=== PATIENT | female | born 1940 | race Caucasian/White ===

== ENCOUNTER 2017-02-25 10:04 | Observation (INO) | payer MEDICARE, BC ==
--- NOTE | 2017-02-25 10:56 | ED ---
General Adult HPI - General Chief complaint: Chest Pain Stated complaint: left should pain Time Seen by Provider: 02/25/17 10:05 Source: patient, RN notes reviewed Mode of arrival: wheelchair Limitations: no limitations - History of Present Illness Initial comments: This is a 77-year-old female presents emergency Department complaining of two- week history of left shoulder pain. Patient states it hurts worse when she moves it she states the pain radiates up into her neck and occasionally radiates into her chest per patient states it's excruciating at times and it seems to come and go and it often occurs when he she is not even moving it. Patient states moving it does cause significant increase in the pain level. Patient states the only thing that seems to helped her pain is nitroglycerin. Patient denies any recent fever chills or cough. Patient denies any headache patient denies any numbness weakness. Patient denies any recent injury trauma or heavy lifting. Patient denies any back pain. - Related Data Home Medications Medication Instructions Recorded Confirmed Isosorbide Mononitrate [Imdur] 60 mg PO BID@0900,209912/20/13 02/25/17 Clopidogrel [Plavix] 75 mg PO DAILY@1700 10/24/14 02/25/17 Lisinopril [Prinivil] 20 mg PO DAILY@0910/24/14 02/25/17 Metoprolol Succinate [Toprol XL] 50 mg PO BID 10/24/14 02/25/17 Diltiazem HCl [Diltiazem 24Hr ER] 180 mg PO BID@0900,209901/02/15 02/25/17 Methocarbamol [Robaxin] 500 mg PO BID@0900,209901/02/15 02/25/17 Montelukast [Singulair] 10 mg PO DAILY@00 01/02/15 02/25/17 Melatonin 3 mg PO HS@209902/27/15 02/25/17 Methyl Salicylate/Menthol 1 patch TP DAILY PRN 02/27/15 02/25/17 [Salonpas Patch] Nitroglycerin Sl Tabs [Nitrostat] 0.4 mg SUBLINGUAL Q5M PRN 02/27/15 02/25/17 Acetaminophen-Codeine 300-30mg 1 tab PO Q6H PRN 02/25/17 02/25/17 [Tylenol #3] Ergocalciferol [Vitamin D2] 50,000 unit PO Q7D 02/25/17 02/25/17 Furosemide [Lasix] 40 mg PO DAILY 02/25/17 02/25/17 Gabapentin [Neurontin] 400 mg PO BID 02/25/17 02/25/17 Simvastatin [Zocor] 20 mg PO DAILY 02/25/17 02/25/17 Previous Rx's Medication Instructions Recorded Insuln Asp Prt/Insulin Aspart 17 unit SQ AC-SUPPER #1 vial 03/03/15 [NovoLOG MIX 70-30 VIAL] Insuln Asp Prt/Insulin Aspart 34 unit SQ AC-BRKFST #1 vial 03/03/15 [NovoLOG MIX 70-30 VIAL] Sennosides [Senokot] 8.6 mg PO BID@0900,2100 tab 03/03/15 Allergies Allergy/AdvReac Type Severity Reaction Status Date / Time gabapentin Allergy Severe Unknown Verified 02/25/17 10:50 aspirin Allergy Nausea & Verified 02/25/17 10:50 Vomiting, hives Review of Systems ROS Statement: Those systems with pertinent positive or pertinent negative responses have been documented in the HPI. ROS Other: All systems not noted in ROS Statement are negative. Past Medical History Past Medical History: Coronary Artery Disease (CAD), Diabetes Mellitus, Hyperlipidemia, Hypertension Additional Past Medical History / Comment(s): arrythmia, hiatal hernia, hx ulcer years ago, frequent UTI's, chronic lower back pain, torn rotator cuff (rt) , skin CA removed on nose History of Any Multi-Drug Resistant Organisms: None Reported Past Surgical History: Appendectomy, Heart Catheterization With Stent, Hernia Repair, Hysterectomy, Pacemaker Additional Past Surgical History / Comment(s): biopsy of skin lesion on nose Past Anesthesia/Blood Transfusion Reactions: No Reported Reaction Date of Last Stent Placement:: 2006 Type of Cardiac Device: Permanent Pacemaker Device Placement Date:: 01/2012 Past Psychological History: No Psychological Hx Reported Smoking Status: Former smoker Past Alcohol Use History: None Reported Past Drug Use History: None Reported - Past Family History Mother Family Medical History: Cancer, Hypertension Father Additional Family Medical History / Comment(s): pt stated had heart issues but doesn't recall what General Exam - General Exam Comments Initial Comments: GENERAL: Patient is well-developed and well-nourished. Patient is nontoxic and well- hydrated and is in moderate distress. ENT: Neck is soft and supple. No significant lymphadenopathy is noted. Oropharynx is clear. Moist mucous membranes. Neck has full range of motion without eliciting any pain. EYES: The sclera were anicteric and conjunctiva were pink and moist. Extraocular movements were intact and pupils were equal round and reactive to light. Eyelids were unremarkable. PULMONARY: Unlabored respirations. Good breath sounds bilaterally. No audible rales rhonchi or wheezing was noted. CARDIOVASCULAR: There is a regular rate and rhythm without any murmurs gallops or rubs. ABDOMEN: Soft and nontender with normal bowel sounds. No palpable organomegaly was noted. There is no palpable pulsatile mass. SKIN: Skin is clear with no lesions or rashes and otherwise unremarkable. NEUROLOGIC: Patient is alert and oriented x3. Cranial nerves II through XII are grossly intact. Motor and sensory are also intact. Normal speech, volume and content. Symmetrical smile. MUSCULOSKELETAL: Open of the left shoulder does seem to cause patient quite a bit of pain to palpation of the shoulder does not. LYMPHATICS: No significant lymphadenopathy is noted PSYCHIATRIC: Normal psychiatric evaluation. Normal interpersonal interactions appears functionally intact in deals appropriately with others. No signs of depression. No signs of anxiety. Limitations: no limitations Course Vital Signs 02/25/17 02/25/17 02/25/17 10:06 10:59 11:05 Temperature 97.0 F L Pulse Rate 65 70 66 Respiratory 18 20 20 Rate Blood Pressure 162/74 132/65 114/63 O2 Sat by Pulse 97 99 98 Oximetry 02/25/17 11:10 Temperature Pulse Rate 65 Respiratory 18 Rate Blood Pressure 118/68 O2 Sat by Pulse 99 Oximetry Medical Decision Making - Medical Decision Making EKG shows a paced rhythm at 65 bpm W[place] interval is 286 QRS is 144 Q-T intervals 426 QTC is 443. Patient's EKG shows no ST segment elevation or depression or T wave abnormalities are noted. Chest x-ray shows no acute abnormality. Shoulder x-ray shows no acute abnormality. - Lab Data Result diagrams: 02/25/17 10:25 02/25/17 10:25 Lab Results 02/25/17 02/25/17 02/25/17 Range/Units 10:25 10:25 10:25 WBC 7.3 (3.8-10.6) k/uL RBC 4.32 (3.80-5.40) m/uL Hgb 12.8 (11.4-16.0) gm/dL Hct 38.9 (34.0-46.0) % MCV 90.1 (80.0-100.0) fL MCH 29.6 (25.0-35.0) pg MCHC 32.9 (31.0-37.0) g/dL RDW 14.0 (11.5-15.5) % Plt Count 248 (150-450) k/uL Neutrophils % 71 % Lymphocytes % 20 % Monocytes % 6 % Eosinophils % 1 % Basophils % 0 % Neutrophils # 5.2 (1.3-7.7) k/uL Lymphocytes # 1.4 (1.0-4.8) k/uL Monocytes # 0.4 (0-1.0) k/uL Eosinophils # 0.1 (0-0.7) k/uL Basophils # 0.0 (0-0.2) k/uL PT (9.0-12.0) sec INR (<1.2) APTT (22.0-30.0) sec Sodium 137 (137-145) mmol/L Potassium 4.9 (3.5-5.1) mmol/L Chloride 105 (98-107) mmol/L Carbon Dioxide 21 L (22-30) mmol/L Anion Gap 11 mmol/L BUN 29 H (7-17) mg/dL Creatinine 0.70 (0.52-1.04) mg/dL Est GFR (MDRD) Af Amer >60 (>60 ml/min/1.73 sqM) Est GFR (MDRD) Non-Af >60 (>60 ml/min/1.73 sqM) Glucose 211 H (74-99) mg/dL Calcium 9.3 (8.4-10.2) mg/dL Magnesium 1.7 (1.6-2.3) mg/dL Total Bilirubin 0.3 (0.2-1.3) mg/dL AST 18 (14-36) U/L ALT 28 (9-52) U/L Alkaline Phosphatase 89 (38-126) U/L Total Creatine Kinase 24 L (30-135) U/L CK-MB (CK-2) 0.7 (0.0-2.4) ng/mL CK-MB (CK-2) Rel Index 2.9 Troponin I <0.012 (0.000-0.034) ng/mL Total Protein 6.6 (6.3-8.2) g/dL Albumin 3.8 (3.5-5.0) g/dL 02/25/17 Range/Units 10:25 WBC (3.8-10.6) k/uL RBC (3.80-5.40) m/uL Hgb (11.4-16.0) gm/dL Hct (34.0-46.0) % MCV (80.0-100.0) fL MCH (25.0-35.0) pg MCHC (31.0-37.0) g/dL RDW (11.5-15.5) % Plt Count (150-450) k/uL Neutrophils % % Lymphocytes % % Monocytes % % Eosinophils % % Basophils % % Neutrophils # (1.3-7.7) k/uL Lymphocytes # (1.0-4.8) k/uL Monocytes # (0-1.0) k/uL Eosinophils # (0-0.7) k/uL Basophils # (0-0.2) k/uL PT 9.8 (9.0-12.0) sec INR 1.0 (<1.2) APTT 23.1 (22.0-30.0) sec Sodium (137-145) mmol/L Potassium (3.5-5.1) mmol/L Chloride (98-107) mmol/L Carbon Dioxide (22-30) mmol/L Anion Gap mmol/L BUN (7-17) mg/dL Creatinine (0.52-1.04) mg/dL Est GFR (MDRD) Af Amer (>60 ml/min/1.73 sqM) Est GFR (MDRD) Non-Af (>60 ml/min/1.73 sqM) Glucose (74-99) mg/dL Calcium (8.4-10.2) mg/dL Magnesium (1.6-2.3) mg/dL Total Bilirubin (0.2-1.3) mg/dL AST (14-36) U/L ALT (9-52) U/L Alkaline Phosphatase (38-126) U/L Total Creatine Kinase (30-135) U/L CK-MB (CK-2) (0.0-2.4) ng/mL CK-MB (CK-2) Rel Index Troponin I (0.000-0.034) ng/mL Total Protein (6.3-8.2) g/dL Albumin (3.5-5.0) g/dL Disposition Clinical Impression: Chest pain, Shoulder pain Disposition: ADMITTED IP TO THIS HOSP Referrals: Javier Enriquez MD [Primary Care Provider] - 1-2 days Time of Disposition: 12:17
[2017-02-25] MEDS: NITROGLYCERIN SL TABS 0.4 MG TAB SUBLINGUAL STA ×3 (10:59→11:09)
[2017-02-25] MEDS: ASPIRIN 81 MG PO STA ×2 (11:06→11:07)
[2017-02-25] MEDS ORDERED: ONDANSETRON 4 MG/2 ML VIAL IVP STA (11:11)
[2017-02-25] MEDS ORDERED: HYDROmorphone 1 MG/ML 1 ML SYRINGE IVP STA (11:11)
[2017-02-25 11:13] LABS: Basophils % (A) 0 %; CH 30.9; CHCM 34.5; Eosinophils # (A) 0.1 k/uL (0-0.7); Eosinophils % (A) 1 %; HCT 38.9 % (34.0-46.0); HDW 2.69; HGB 12.8 gm/dL (11.4-16.0); Luc # (Auto) 0.15; Luc % (Auto) 2; Lymphocytes # (A) 1.4 k/uL (1.0-4.8); Lymphocytes % (A) 20 %; MCH 29.6 pg (25.0-35.0); MCHC 32.9 g/dL (31.0-37.0); MCV 90.1 fL (80.0-100.0); Mean Platelet Volume 7.3; Monocytes # (A) 0.4 k/uL (0-1.0); Monocytes % (A) 6 %; Neutrophils # (A) 5.2 k/uL (1.3-7.7); Neutrophils % (A) 71 %; RBC 4.32 m/uL (3.80-5.40); WBC 7.3 k/uL (3.8-10.6); WBC (Perox) 8.03
[2017-02-25 11:16] LABS: ALT 28 U/L (9-52); AST 18 U/L (14-36); Alkaline Phosphatase 89 U/L (38-126); Anion Gap 11 mmol/L; Blood Urea Nitrogen 29 mg/dL (7-17); Calcium 9.3 mg/dL (8.4-10.2); Carbon Dioxide 21 mmol/L (22-30); Chloride 105 mmol/L (98-107); Glucose 211 mg/dL (74-99); Magnesium 1.7 mg/dL (1.6-2.3); Non-African American GFR(MDRD) >60 (>60 ml/min/1.73 sqM); Potassium 4.9 mmol/L (3.5-5.1); Sodium 137 mmol/L (137-145); Total Bilirubin 0.3 mg/dL (0.2-1.3); Total Protein 6.6 g/dL (6.3-8.2)
[2017-02-25 11:17] LABS: Partial Thromboplastin Time 23.1 sec (22.0-30.0)
[2017-02-25 11:20] LABS: Prothrombin Time 9.8 sec (9.0-12.0)
--- NOTE | 2017-02-25 11:31 | XR ---
EXAMINATION TYPE: XR chest 2V DATE OF EXAM: 02/25/2017 COMPARISON: NONE INDICATION: Left shoulder left side pain TECHNIQUE: Frontal and lateral views of the chest are obtained. FINDINGS: The heart size is normal. The pulmonary vasculature is normal. The lungs are clear. Electronic device overlies left chest. IMPRESSION: 1. No acute pulmonary process.
[2017-02-25 11:34] LABS: Creatine Kinase 24 U/L (30-135)
--- NOTE | 2017-02-25 11:37 | XR ---
EXAMINATION TYPE: XR shoulder complete LT DATE OF EXAM: 02/25/2017 COMPARISON: 10/24/2014 HISTORY: Pain TECHNIQUE: Shoulder examined in 3 FINDINGS: The humeral head articulates with the glenoid. There is some hypertrophy at the acromioclavicular junction with downward spurring which can contribu te to impingement No acute fractures or dislocations are evident. Pacemaker overlies left chest. A follow up study can be performed 7-10 days from acute trauma for continued pain. IMPRESSION: 1. No acute osseous abnormality.
[2017-02-25 11:46] LABS: Creatine Kinase MB 0.7 ng/mL (0.0-2.4); Troponin I <0.012 ng/mL (0.000-0.034)
[2017-02-25] MEDS ORDERED: NITROGLYCERIN SL TABS 0.4 MG TAB SUBLINGUAL PRN (12:17)
[2017-02-25 17:01] LABS: Creatine Kinase 24 U/L (30-135)
[2017-02-25 17:11] LABS: Creatine Kinase MB 0.5 ng/mL (0.0-2.4); Troponin I <0.012 ng/mL (0.000-0.034)
[2017-02-25 17:20] LABS: Glucose,Whole Blood 233 mg/dL (75-99)
[2017-02-25] MEDS ORDERED: NITROGLYCERIN OINT 1 INCH/GM PACKET TOPICAL SCH (18:00)
[2017-02-25 20:34] LABS: Glucose,Whole Blood 229 mg/dL (75-99)
[2017-02-25] MEDS ORDERED: CLOPIDOGREL 75 MG TAB PO SCH (21:00)
[2017-02-25] MEDS ORDERED: MELATONIN 3 MG TABLET PO SCH (21:00)
[2017-02-25] MEDS ORDERED: INSULN ASP PRT/INSULIN ASPART 100 UNIT/ML 10 ML VIAL SQ SCH (21:00)
[2017-02-25] MEDS: HYDROcodone/APAP 10-325MG 1 EACH TAB PO PRN (23:01)
[2017-02-25] MEDS: GABAPENTIN 400 MG CAP PO SCH (23:02)
[2017-02-25] MEDS: METOPROLOL SUCCINATE (ER) 50 MG TAB.ER.24H PO SCH (23:02)
[2017-02-25] MEDS: SENNOSIDES 8.6 MG TAB PO SCH (23:02)
[2017-02-25] MEDS: DILTIAZEM CD 180 MG CAP.ER.24H PO SCH (23:02)
[2017-02-25] MEDS: ISOSORBIDE MONONITRATE ER 60 MG TAB.ER.24H PO SCH (23:02)
[2017-02-25] MEDS: HEPARIN SODIUM,PORCINE 5,000 UNIT/ML 1 ML VIAL SQ SCH (23:03)
[2017-02-25] MEDS: METHOCARBAMOL 500 MG TAB PO SCH (23:03)
[2017-02-25 23:33] LABS: Creatine Kinase 30 U/L (30-135)
[2017-02-25 23:46] LABS: Creatine Kinase MB 0.4 ng/mL (0.0-2.4); Troponin I <0.012 ng/mL (0.000-0.034)
[2017-02-26 03:34] LABS: Cholesterol 191 mg/dL (<200); HDL Cholesterol 35 mg/dL (40-60)
[2017-02-26] MEDS: HYDROcodone/APAP 10-325MG 1 EACH TAB PO PRN ×2 (04:31→10:54)
[2017-02-26 04:35] VITALS: RESP 18
[2017-02-26 07:01] LABS: Glucose,Whole Blood 114 mg/dL (75-99)
[2017-02-26] MEDS ORDERED: INSULN ASP PRT/INSULIN ASPART 100 UNIT/ML 10 ML VIAL SQ SCH (07:30)
[2017-02-26] MEDS: INSULIN LISPRO (humaLOG) 300 UNIT/3 ML VIAL SQ SCH ×2 (08:22→12:35)
[2017-02-26] MEDS: ASPIRIN 325 MG TAB PO SCH ×2 (08:29→08:30)
[2017-02-26] MEDS: HEPARIN SODIUM,PORCINE 5,000 UNIT/ML 1 ML VIAL SQ SCH (08:29)
[2017-02-26] MEDS ORDERED: FUROSEMIDE 40 MG TAB PO SCH (09:00)
[2017-02-26] MEDS ORDERED: MONTELUKAST 10 MG TAB PO SCH (09:00)
[2017-02-26] MEDS ORDERED: ATORVASTATIN 10 MG TAB PO SCH (09:00)
[2017-02-26] MEDS ORDERED: LISINOPRIL 20 MG TAB PO SCH (09:00)
--- NOTE | 2017-02-26 10:18 | P.CRDCN ---
History of Present Illness History of present illness: Patient interviewed and examined. Severe shoulder discomfort triggered by shoulder movements. She winces in pain. When the pain gets worse is present in the neck and into her chest. Normal cardiac enzymes. AV sequential pacing on 12-lead ECG Suggest management of musculoskeletal shoulder pain. Please see full dictation by nurse practitioner Past Medical History Past Medical History: Coronary Artery Disease (CAD), Diabetes Mellitus, Hyperlipidemia, Hypertension Additional Past Medical History / Comment(s): arrythmia, hiatal hernia, hx ulcer years ago, frequent UTI's, chronic lower back pain, torn rotator cuff (rt) , skin CA removed on nose History of Any Multi-Drug Resistant Organisms: None Reported Past Surgical History: Appendectomy, Heart Catheterization With Stent, Hernia Repair, Hysterectomy, Pacemaker Additional Past Surgical History / Comment(s): biopsy of skin lesion on nose Past Anesthesia/Blood Transfusion Reactions: No Reported Reaction Date of Last Stent Placement:: 2006 Type of Cardiac Device: Permanent Pacemaker Device Placement Date:: 01/2012 Past Psychological History: No Psychological Hx Reported Smoking Status: Former smoker Past Alcohol Use History: None Reported Past Drug Use History: None Reported - Past Family History Mother Family Medical History: Cancer, Hypertension Additional Family Medical History / Comment(s): Mother had leukemia. She at the age of 78yrs. She had 21 children. Father Family Medical History: Myocardial Infarction ([place]) Additional Family Medical History / Comment(s): pt stated had heart issues but doesn't recall what Medications and Allergies Home Medications Medication Instructions Recorded Confirmed Type Isosorbide Mononitrate [Imdur] 60 mg PO BID@0900,209912/20/13 02/25/17 History Clopidogrel [Plavix] 75 mg PO DAILY@1700 10/24/14 02/25/17 History Lisinopril [Prinivil] 20 mg PO DAILY@0900 10/24/14 02/25/17 History Metoprolol Succinate [Toprol XL] 50 mg PO BID 10/24/14 02/25/17 History Diltiazem HCl [Diltiazem 24Hr ER] 180 mg PO BID@0900,209901/02/15 02/25/17 History Methocarbamol [Robaxin] 500 mg PO BID@0900,209901/02/15 02/25/17 History Montelukast [Singulair] 10 mg PO DAILY@0900 01/02/15 02/25/17 History Melatonin 3 mg PO HS@2100 02/27/15 02/25/17 History Methyl Salicylate/Menthol 1 patch TP DAILY PRN 02/27/15 02/25/17 History [Salonpas Patch] Nitroglycerin Sl Tabs [Nitrostat] 0.4 mg SUBLINGUAL Q5M PRN 02/27/15 02/25/17 History Insuln Asp Prt/Insulin Aspart 17 unit SQ AC-SUPPER #1 vial 03/03/15 02/25/17 Rx [NovoLOG MIX 70-30 VIAL] Insuln Asp Prt/Insulin Aspart 34 unit SQ AC-BRKFST #1 vial 03/03/15 02/25/17 Rx [NovoLOG MIX 70-30 VIAL] Sennosides [Senokot] 8.6 mg PO BID@0900,2100 tab 03/03/15 02/25/17 Rx Ergocalciferol [Vitamin D2] 50,000 unit PO Q7D 02/25/17 02/25/17 History Furosemide [Lasix] 40 mg PO DAILY 02/25/17 02/25/17 History Gabapentin [Neurontin] 400 mg PO BID 02/25/17 02/25/17 History Hydrocodone/Acetaminophen [Kelly 1 tab PO Q6H PRN 02/25/17 02/25/17 History 10-325] Simvastatin [Zocor] 20 mg PO DAILY 02/25/17 02/25/17 History Allergies Allergy/AdvReac Type Severity Reaction Status Date / Time gabapentin Allergy Severe Unknown Verified 02/25/17 10:50 aspirin Allergy Nausea & Verified 02/25/17 10:50 Vomiting, hives Physical Exam Vitals: Vital Signs Temp Pulse Pulse Resp BP BP BP 02/26/17 07:54 97.3 F L 64 18 99/48 02/26/17 04:00 97.9 F 61 18 104/47 02/26/17 00:00 98.0 F 64 16 112/46 02/25/17 20:00 66 16 02/25/17 19:54 97.6 F 64 16 154/60 02/25/17 16:12 02/25/17 15:36 98.9 F 71 18 136/74 02/25/17 15:18 98.0 F 70 18 156/78 02/25/17 14:30 98.0 F 66 18 152/80 02/25/17 13:30 98.0 F 60 18 152/67 02/25/17 12:21 61 20 133/62 02/25/17 11:10 65 18 118/68 02/25/17 11:05 66 20 114/63 02/25/17 10:59 70 20 132/65 Pulse Ox 02/26/17 07:54 95 02/26/17 04:00 94 L 02/26/17 00:00 92 L 02/25/17 20:00 02/25/17 19:54 94 L 02/25/17 16:12 96 02/25/17 15:36 98 02/25/17 15:18 99 02/25/17 14:30 99 02/25/17 13:30 95 02/25/17 12:21 95 02/25/17 11:10 99 02/25/17 11:05 98 02/25/17 10:59 99 Intake and Output 02/25/17 02/26/17 02/26/17 22:59 06:59 14:59 Other: # Voids 2 Results 02/25/17 10:25 02/25/17 10:25 Cardiac Enzymes 02/25/17 02/25/17 02/25/17 Range/Units 10:25 10:25 16:12 AST 18 (14-36) U/L CK-MB (CK-2) 0.7 0.5 (0.0-2.4) ng/mL Troponin I <0.012 <0.012 (0.000-0.034) ng/mL 02/25/17 Range/Units 22:29 AST (14-36) U/L CK-MB (CK-2) 0.4 (0.0-2.4) ng/mL Troponin I <0.012 (0.000-0.034) ng/mL Coagulation 02/25/17 Range/Units 10:25 PT 9.8 (9.0-12.0) sec APTT 23.1 (22.0-30.0) sec Lipids 02/25/17 Range/Units 10:25 Triglycerides 290 H (<150) mg/dL Cholesterol 191 (<200) mg/dL HDL Cholesterol 35 L (40-60) mg/dL CBC 02/25/17 Range/Units 10:25 WBC 7.3 (3.8-10.6) k/uL RBC 4.32 (3.80-5.40) m/uL Hgb 12.8 (11.4-16.0) gm/dL Hct 38.9 (34.0-46.0) % Plt Count 248 (150-450) k/uL Comprehensive Metabolic Panel 02/25/17 Range/Units 10:25 Sodium 137 (137-145) mmol/L Potassium 4.9 (3.5-5.1) mmol/L Chloride 105 (98-107) mmol/L Carbon Dioxide 21 L (22-30) mmol/L BUN 29 H (7-17) mg/dL Creatinine 0.70 (0.52-1.04) mg/dL Glucose 211 H (74-99) mg/dL Calcium 9.3 (8.4-10.2) mg/dL AST 18 (14-36) U/L ALT 28 (9-52) U/L Alkaline Phosphatase 89 (38-126) U/L Total Protein 6.6 (6.3-8.2) g/dL Albumin 3.8 (3.5-5.0) g/dL Current Medications Generic Name Dose Route Start Last Admin Trade Name Freq PRN Reason Stop Dose Admin Hydrocodone Bitart/Acetaminophen 1 each 02/25/17 20:50 02/26/17 04:31 Kelly 10 PO 1 each Q6H PRN Administration Pain Aspirin 325 mg 02/26/17 09:00 02/26/17 08:30 Aspirin PO Not Given DAILY [facility] Atorvastatin Calcium 10 mg 02/26/17 09:00 02/26/17 08:29 Lipitor PO 10 mg DAILY [facility] Administration Clopidogrel Bisulfate 75 mg 02/25/17 21:00 02/25/17 23:02 Plavix PO 75 mg DAILY@1700 [facility] Administration Diltiazem HCl 180 mg 02/25/17 21:00 02/25/17 23:02 Cardizem Cd PO 180 mg BID@0900,2100 [facility] Administration Furosemide 40 mg 02/26/17 09:00 Lasix PO DAILY [facility] Gabapentin 400 mg 02/25/17 21:00 02/25/17 23:02 Neurontin PO 400 mg BID [facility] Administration Heparin Sodium (Porcine) 5,000 unit 02/26/17 00:00 02/26/17 08:29 Heparin SQ 5,000 unit Q8HR [facility] Administration Insulin Aspart 17 unit 02/25/17 21:00 02/25/17 21:43 Novolog Mix 70-30 Vial SQ 17 unit AC-SUPPER [facility] Administration Insulin Aspart 34 unit 02/26/17 07:30 Novolog Mix 70-30 Vial SQ AC-BRKFST [facility] Insulin Human Lispro 0 unit 02/26/17 07:30 02/26/17 08:22 Humalog SQ Not Given [facility] Protocol Isosorbide Mononitrate 60 mg 02/25/17 21:00 02/25/17 23:02 Imdur PO 60 mg BID@0900,2100 [facility] Administration Lisinopril 20 mg 02/26/17 09:00 Zestril PO DAILY@0900 [facility] Melatonin 3 mg 02/25/17 21:00 02/25/17 23:02 Melatonin PO 3 mg HS@2100 [facility] Administration Methocarbamol 500 mg 02/25/17 21:00 02/25/17 23:03 Robaxin PO 500 mg BID@0900,2100 [facility] Administration Metoprolol Succinate 50 mg 02/25/17 21:00 02/25/17 23:02 Toprol Xl PO 50 mg BID [facility] Administration Montelukast Sodium 10 mg 02/26/17 09:00 Singulair PO DAILY@0900 [facility] Nitroglycerin 0.4 mg 02/25/17 12:17 Nitrostat SUBLINGUAL Q5M PRN Chest Pain Senna 8.6 mg 02/25/17 21:00 02/25/17 23:02 Senokot PO 8.6 mg BID@0900,2100 [facility] Administration Intake and Output 02/25/17 02/26/17 02/26/17 22:59 06:59 14:59 Other: # Voids 2 02/25/17 10:25 02/25/17 10:25
[2017-02-26] MEDS: DILTIAZEM CD 180 MG CAP.ER.24H PO SCH (10:57)
[2017-02-26] MEDS: GABAPENTIN 400 MG CAP PO SCH (10:58)
[2017-02-26] MEDS: METOPROLOL SUCCINATE (ER) 50 MG TAB.ER.24H PO SCH (10:58)
[2017-02-26] MEDS: ISOSORBIDE MONONITRATE ER 60 MG TAB.ER.24H PO SCH (10:58)
[2017-02-26] MEDS: SENNOSIDES 8.6 MG TAB PO SCH (10:58)
[2017-02-26] MEDS: METHOCARBAMOL 500 MG TAB PO SCH (10:59)
--- NOTE | 2017-02-26 11:09 | P.CRDCN ---
History of Present Illness Consult date: 02/26/17 History of present illness: This is a 77-year-old female. She follows with Dr. Braun as an outpatient. She was last in the office November of this year. She presents to the hospital complaining of acute left shoulder pain. She states this has been going off-and-on for the past 2 weeks. She denies any chest pain, neck pain, jaw pain, back pain or radiation of the pain at all down the left arm. This pain in the left shoulder is intermittent in nature and is worse with movement. Upon examination lifting the arm above the shoulder causes an acute sharp pain in the left shoulder. She has a past medical history significant for CAD, diabetes mellitus, dyslipidemia and hypertension. Last echocardiogram was performed in February 2015. EKG indicates his dual paced. Chest x-ray negative for acute cardiopulmonary process shoulder x-ray negative for any acute pathology. Troponin negative 3. Review of Systems Extensive review of systems performed, negative except mentioned in HPI. Past Medical History Past Medical History: Coronary Artery Disease (CAD), Diabetes Mellitus, Hyperlipidemia, Hypertension Additional Past Medical History / Comment(s): arrythmia, hiatal hernia, hx ulcer years ago, frequent UTI's, chronic lower back pain, torn rotator cuff (rt) , skin CA removed on nose History of Any Multi-Drug Resistant Organisms: None Reported Past Surgical History: Appendectomy, Heart Catheterization With Stent, Hernia Repair, Hysterectomy, Pacemaker Additional Past Surgical History / Comment(s): biopsy of skin lesion on nose Past Anesthesia/Blood Transfusion Reactions: No Reported Reaction Date of Last Stent Placement:: 2006 Type of Cardiac Device: Permanent Pacemaker Device Placement Date:: 01/2012 Past Psychological History: No Psychological Hx Reported Smoking Status: Former smoker Past Alcohol Use History: None Reported Past Drug Use History: None Reported - Past Family History Mother Family Medical History: Cancer, Hypertension Additional Family Medical History / Comment(s): Mother had leukemia. She at the age of 78yrs. She had 21 children. Father Family Medical History: Myocardial Infarction (CT) Additional Family Medical History / Comment(s): pt stated had heart issues but doesn't recall what Medications and Allergies Home Medications Medication Instructions Recorded Confirmed Type Isosorbide Mononitrate [Imdur] 60 mg PO BID@0900,2100 12/20/13 02/25/17 History Clopidogrel [Plavix] 75 mg PO DAILY@1700 10/24/14 02/25/17 History Lisinopril [Prinivil] 20 mg PO DAILY@0900 10/24/14 02/25/17 History Metoprolol Succinate [Toprol XL] 50 mg PO BID 10/24/14 02/25/17 History Diltiazem HCl [Diltiazem 24Hr ER] 180 mg PO BID@0900,209901/02/15 02/25/17 History Methocarbamol [Robaxin] 500 mg PO BID@0900,209901/02/15 02/25/17 History Montelukast [Singulair] 10 mg PO DAILY@0901/02/15 02/25/17 History Melatonin 3 mg PO HS@209902/27/15 02/25/17 History Methyl Salicylate/Menthol 1 patch TP DAILY PRN 02/27/15 02/25/17 History [Salonpas Patch] Nitroglycerin Sl Tabs [Nitrostat] 0.4 mg SUBLINGUAL Q5M PRN 02/27/15 02/25/17 History Insuln Asp Prt/Insulin Aspart 17 unit SQ AC-SUPPER #1 vial 03/03/15 02/25/17 Rx [NovoLOG MIX 70-30 VIAL] Insuln Asp Prt/Insulin Aspart 34 unit SQ AC-BRKFST #1 vial 03/03/15 02/25/17 Rx [NovoLOG MIX 70-30 VIAL] Sennosides [Senokot] 8.6 mg PO BID@0900,2100 tab 03/03/15 02/25/17 Rx Ergocalciferol [Vitamin D2] 50,000 unit PO Q7D 02/25/17 02/25/17 History Furosemide [Lasix] 40 mg PO DAILY 02/25/17 02/25/17 History Gabapentin [Neurontin] 400 mg PO BID 02/25/17 02/25/17 History Hydrocodone/Acetaminophen [[place] 1 tab PO Q6H PRN 02/25/17 02/25/17 History 10-325] Simvastatin [Zocor] 20 mg PO DAILY 02/25/17 02/25/17 History Allergies Allergy/AdvReac Type Severity Reaction Status Date / Time gabapentin Allergy Severe Unknown Verified 02/25/17 10:50 aspirin Allergy Nausea & Verified 02/25/17 10:50 Vomiting, hives Physical Exam Vitals: Vital Signs Temp Pulse Pulse Resp BP BP BP 02/26/17 07:54 97.3 F L 64 18 99/48 02/26/17 04:00 97.9 F 61 18 104/47 02/26/17 00:00 98.0 F 64 16 112/46 02/25/17 20:00 66 16 02/25/17 19:54 97.6 F 64 16 154/60 02/25/17 16:12 02/25/17 15:36 98.9 F 71 18 136/74 02/25/17 15:18 98.0 F 70 18 156/78 02/25/17 14:30 98.0 F 66 18 152/80 02/25/17 13:30 98.0 F 60 18 152/67 02/25/17 12:21 61 20 133/62 02/25/17 11:10 65 18 118/68 02/25/17 11:05 66 20 114/63 02/25/17 10:59 70 20 132/65 02/25/17 10:06 97.0 F L 65 18 162/74 Pulse Ox 02/26/17 07:54 95 02/26/17 04:00 94 L 02/26/17 00:00 92 L 02/25/17 20:00 02/25/17 19:54 94 L 02/25/17 16:12 96 02/25/17 15:36 98 02/25/17 15:18 99 02/25/17 14:30 99 02/25/17 13:30 95 02/25/17 12:21 95 02/25/17 11:10 99 02/25/17 11:05 98 02/25/17 10:59 99 02/25/17 10:06 97 Intake and Output 02/25/17 02/26/17 02/26/17 22:59 06:59 14:59 Other: # Voids 2 GENERAL: This is a 77-year-old female in no apparent distress at the time of my examination. HEENT: Head is atraumatic, normocephalic. Pupils are equal, round. Sclerae anicteric. Conjunctivae are clear. Mucous membranes of the mouth are moist. Neck is supple. There is no jugular venous distention. No carotid bruit is heard. LUNGS: Clear to auscultation no wheezes, rales or rhonchi. No chest wall tenderness is noted on palpation or with deep breathing. HEART: Regular rate and rhythm without murmurs, rubs or gallops. S1 and S2 heard. ABDOMEN: Soft, nontender. Bowel sounds are heard. No organomegaly noted. EXTREMITIES: 2+ peripheral pulses with no evidence of peripheral edema and no calf tenderness noted. NEUROLOGIC: Patient is awake, alert and oriented x3. Results 02/25/17 10:25 02/25/17 10:25 Cardiac Enzymes 02/25/17 02/25/17 02/25/17 Range/Units 10:25 10:25 16:12 AST 18 (14-36) U/L CK-MB (CK-2) 0.7 0.5 (0.0-2.4) ng/mL Troponin I <0.012 <0.012 (0.000-0.034) ng/mL 02/25/17 Range/Units 22:29 AST (14-36) U/L CK-MB (CK-2) 0.4 (0.0-2.4) ng/mL Troponin I <0.012 (0.000-0.034) ng/mL Coagulation 02/25/17 Range/Units 10:25 PT 9.8 (9.0-12.0) sec APTT 23.1 (22.0-30.0) sec Lipids 02/25/17 Range/Units 10:25 Triglycerides 290 H (<150) mg/dL Cholesterol 191 (<200) mg/dL HDL Cholesterol 35 L (40-60) mg/dL CBC 02/25/17 Range/Units 10:25 WBC 7.3 (3.8-10.6) k/uL RBC 4.32 (3.80-5.40) m/uL Hgb 12.8 (11.4-16.0) gm/dL Hct 38.9 (34.0-46.0) % Plt Count 248 (150-450) k/uL Comprehensive Metabolic Panel 02/25/17 Range/Units 10:25 Sodium 137 (137-145) mmol/L Potassium 4.9 (3.5-5.1) mmol/L Chloride 105 (98-107) mmol/L Carbon Dioxide 21 L (22-30) mmol/L BUN 29 H (7-17) mg/dL Creatinine 0.70 (0.52-1.04) mg/dL Glucose 211 H (74-99) mg/dL Calcium 9.3 (8.4-10.2) mg/dL AST 18 (14-36) U/L ALT 28 (9-52) U/L Alkaline Phosphatase 89 (38-126) U/L Total Protein 6.6 (6.3-8.2) g/dL Albumin 3.8 (3.5-5.0) g/dL Current Medications Generic Name Dose Route Start Last Admin Trade Name Freq PRN Reason Stop Dose Admin Hydrocodone Bitart/Acetaminophen 1 each 02/25/17 20:50 02/26/17 04:31 [place] 10 PO 1 each Q6H PRN Administration Pain Aspirin 325 mg 02/26/17 09:00 Aspirin PO DAILY [facility] Atorvastatin Calcium 10 mg 02/26/17 09:00 02/26/17 08:29 Lipitor PO 10 mg DAILY [facility] Administration Clopidogrel Bisulfate 75 mg 02/25/17 21:00 02/25/17 23:02 Plavix PO 75 mg DAILY@1700 [facility] Administration Diltiazem HCl 180 mg 02/25/17 21:00 02/25/17 23:02 Cardizem Cd PO 180 mg BID@0900,2100 [facility] Administration Furosemide 40 mg 02/26/17 09:00 Lasix PO DAILY [facility] Gabapentin 400 mg 02/25/17 21:00 02/25/17 23:02 Neurontin PO 400 mg BID [facility] Administration Heparin Sodium (Porcine) 5,000 unit 02/26/17 00:00 02/26/17 08:29 Heparin SQ 5,000 unit Q8HR [facility] Administration Insulin Aspart 17 unit 02/25/17 21:00 02/25/17 21:43 Novolog Mix 70-30 Vial SQ 17 unit AC-SUPPER [facility] Administration Insulin Aspart 34 unit 02/26/17 07:30 Novolog Mix 70-30 Vial SQ AC-BRKFST [facility] Insulin Human Lispro 0 unit 02/26/17 07:30 02/26/17 08:22 Humalog SQ Not Given ACHS [facility] Protocol Isosorbide Mononitrate 60 mg 02/25/17 21:00 02/25/17 23:02 Imdur PO 60 mg BID@0900,2100 [facility] Administration Lisinopril 20 mg 02/26/17 09:00 Zestril PO DAILY@0900 [facility] Melatonin 3 mg 02/25/17 21:00 02/25/17 23:02 Melatonin PO 3 mg HS@2100 [facility] Administration Methocarbamol 500 mg 02/25/17 21:00 02/25/17 23:03 Robaxin PO 500 mg BID@0900,2100 [facility] Administration Metoprolol Succinate 50 mg 02/25/17 21:00 02/25/17 23:02 Toprol Xl PO 50 mg BID [facility] Administration Montelukast Sodium 10 mg 02/26/17 09:00 Singulair PO DAILY@0900 [facility] Nitroglycerin 0.4 mg 02/25/17 12:17 Nitrostat SUBLINGUAL Q5M PRN Chest Pain Senna 8.6 mg 02/25/17 21:00 02/25/17 23:02 Senokot PO 8.6 mg BID@0900,2100 [facility] Administration Intake and Output 02/25/17 02/26/17 02/26/17 22:59 06:59 14:59 Other: # Voids 2 02/25/17 10:25 02/25/17 10:25 Assessment and Plan Plan: ASSESSMENT 1. Left shoulder pain, musculoskeletal 2. Chronic stable CAD 3. Diabetes mellitus 4. Essential hypertension 5. Dyslipidemia PLAN Severe shoulder discomfort triggered by movement of the left shoulder. This is not present is cardiac in nature. We recommend she be treated medically for her shoulder pain at this time. Thank you kindly for this consultation. Nurse Practitioner note has been reviewed, I agree with a documented findings and plan of care. Patient was seen and examined.
[2017-02-26 11:29] VITALS: BP 152/77; PULSE 62; TEMP 97.9
--- NOTE | 2017-02-26 11:30 | P.DS ---
Providers Date of admission: 02/25/17 12:17 Expected date of discharge: 02/26/17 Attending physician: Kenny Marrero Consults: 02/25/17 12:17 Consult Physician Urgent Consulting Provider: [facility] Consult Reason/Comments: Chest pain Do you want consulting provider notified?: Yes Primary care physician: Javier Enriquez [facility] Course: 77-year-old female on presented to family practice with complaints of left shoulder pain intermittent chest pain. States pain is relieved with nitroglycerin. Patient state she would become short of breath and diaphoretic with pain. Patient was evaluated by cardiology and cleared for discharge. Patient has seen Dr. Abdi in the past will be referred in 2 weeks for all left shoulder impingement Assessment and chest pain atypical troponins negative Left shoulder pain with impingement History of coronary disease History of hypertension History of hyperlipidemia History of pacemaker Plan Follow-up with family physician [employer] supervisor appointment will be made for Dr. Mann in 2 weeks regarding left shoulder impingement Plan - Discharge Summary New Discharge Prescriptions: Continue Isosorbide Mononitrate [Imdur] 60 mg PO BID@0900,2100 Metoprolol Succinate [Toprol XL] 50 mg PO BID Lisinopril [Prinivil] 20 mg PO DAILY@0900 Clopidogrel [Plavix] 75 mg PO DAILY@1700 Methocarbamol [Robaxin] 500 mg PO BID@0900,2100 Montelukast [Singulair] 10 mg PO DAILY@0900 Diltiazem HCl [Diltiazem 24Hr ER] 180 mg PO BID@0900,2100 Nitroglycerin Sl Tabs [Nitrostat] 0.4 mg SUBLINGUAL Q5M PRN PRN Reason: Chest Pain Melatonin 3 mg PO HS@2100 Methyl Salicylate/Menthol [Salonpas Patch] 1 patch TP DAILY PRN PRN Reason: Pain Insuln Asp Prt/Insulin Aspart [NovoLOG MIX 70-30 VIAL] 34 unit SQ AC-BRKFST # 1 vial Insuln Asp Prt/Insulin Aspart [NovoLOG MIX 70-30 VIAL] 17 unit SQ AC-SUPPER # 1 vial Sennosides [Senokot] 8.6 mg PO BID@0900,2100 tab Ergocalciferol [Vitamin D2 (DRISDOL)] 50,000 unit PO Q7D Furosemide [Lasix] 40 mg PO DAILY Gabapentin [Neurontin] 400 mg PO BID Simvastatin [Zocor] 20 mg PO DAILY Hydrocodone/Acetaminophen [[place] 10-325] 1 tab PO Q6H PRN PRN Reason: Pain Discharge Medication List Isosorbide Mononitrate [Imdur] 60 mg PO BID@0900,2100 12/20/13 [History] Clopidogrel [Plavix] 75 mg PO DAILY@1700 10/24/14 [History] Lisinopril [Prinivil] 20 mg PO DAILY@0900 10/24/14 [History] Metoprolol Succinate [Toprol XL] 50 mg PO BID 10/24/14 [History] Diltiazem HCl [Diltiazem 24Hr ER] 180 mg PO BID@0900,209901/02/15 [History] Methocarbamol [Robaxin] 500 mg PO BID@0900,209901/02/15 [History] Montelukast [Singulair] 10 mg PO DAILY@0901/02/15 [History] Melatonin 3 mg PO HS@209902/27/15 [History] Methyl Salicylate/Menthol [Salonpas Patch] 1 patch TP DAILY PRN 02/27/15 [ History] Nitroglycerin Sl Tabs [Nitrostat] 0.4 mg SUBLINGUAL Q5M PRN 02/27/15 [History] Insuln Asp Prt/Insulin Aspart [NovoLOG MIX 70-30 VIAL] 17 unit SQ AC-SUPPER #1 vial 03/03/15 [Rx] Insuln Asp Prt/Insulin Aspart [NovoLOG MIX 70-30 VIAL] 34 unit SQ AC-BRKFST #1 vial 03/03/15 [Rx] Sennosides [Senokot] 8.6 mg PO BID@0900,2100 tab 03/03/15 [Rx] Ergocalciferol [Vitamin D2 (DRISDOL)] 50,000 unit PO Q7D 02/25/17 [History] Furosemide [Lasix] 40 mg PO DAILY 02/25/17 [History] Gabapentin [Neurontin] 400 mg PO BID 02/25/17 [History] Hydrocodone/Acetaminophen [[place] 10-325] 1 tab PO Q6H PRN 02/25/17 [History] Simvastatin [Zocor] 20 mg PO DAILY 02/25/17 [History] Follow up Appointment(s)/Referral(s): Javier Enriquez MD [Primary Care Provider] - 1-2 days
[2017-02-26 11:57] LABS: Glucose,Whole Blood 161 mg/dL (75-99)
--- NOTE | 2017-02-26 14:38 | P.HPIM ---
History of Present Illness H&P Date: 02/25/17 Chief Complaint: Chest pain Patient is a 77-year-old female with a known history of coronary artery disease status post stent placement, history of pacemaker placement, hypertension and diabetes mellitus came to the hospital with complaints of chest pain midsternal 7 out of 10 radiating to the neck, left shoulder and arm. Denied any back pain. Pain has been present for the past 2 weeks on and off and worsens when she moves. Today patient had excruciating pain even without moving and call for cardiology's office and recommended good to come to ER. Patient says that she has been taking nitroglycerin every day without any relief of pain.. Patient denied any fall or recent trauma. No headache or dizziness or lightheadedness. No palpitations. No nausea vomiting or abdominal pain. No recent illnesses. No recent travel. EKG showed dual paced rhythm Troponin 1 negative Chest x-ray showed no acute cardiopulmonary process Left shoulder x-ray showed no osseous deformity Review of Systems CONSTITUTIONAL: No fever, no malaise, no fatigue. HEENT: No recent visual problems or hearing problems. Denied any sore throat. CARDIOVASCULAR: Patient has chest pain radiating to neck and arm left side. No orthopnea, PND, no palpitations, no syncope. PULMONARY: , no hemoptysis. GASTROINTESTINAL: No diarrhea, no nausea, no vomiting, no abdominal pain. Normoactive bowel sounds. NEUROLOGICAL: No headaches, no weakness, no numbness. HEMATOLOGICAL: Denies any bleeding or petechiae. GENITOURINARY: Denies any burning micturition, frequency, or urgency. MUSCULOSKELETAL/RHEUMATOLOGICAL: Denies any joint pain, swelling, or any muscle pain. ENDOCRINE: Denies any polyuria or polydipsia. The rest of the 14-point review of systems is negative. Past Medical History Past Medical History: Coronary Artery Disease (CAD), Diabetes Mellitus, Hyperlipidemia, Hypertension Additional Past Medical History / Comment(s): arrythmia, hiatal hernia, hx ulcer years ago, frequent UTI's, chronic lower back pain, torn rotator cuff (rt) , skin CA removed on nose History of Any Multi-Drug Resistant Organisms: None Reported Past Surgical History: Appendectomy, Heart Catheterization With Stent, Hernia Repair, Hysterectomy, Pacemaker Additional Past Surgical History / Comment(s): biopsy of skin lesion on nose Past Anesthesia/Blood Transfusion Reactions: No Reported Reaction Date of Last Stent Placement:: 2006 Type of Cardiac Device: Permanent Pacemaker Device Placement Date:: 01/2012 Past Psychological History: No Psychological Hx Reported Smoking Status: Former smoker Past Alcohol Use History: None Reported Past Drug Use History: None Reported - Past Family History Mother Family Medical History: Cancer, Hypertension Father Additional Family Medical History / Comment(s): pt stated had heart issues but doesn't recall what Medications and Allergies Home Medications Medication Instructions Recorded Confirmed Type Isosorbide Mononitrate [Imdur] 60 mg PO BID@0900,209912/20/13 02/25/17 History Clopidogrel [Plavix] 75 mg PO DAILY@1700 10/24/14 02/25/17 History Lisinopril [Prinivil] 20 mg PO DAILY@0900 10/24/14 02/25/17 History Metoprolol Succinate [Toprol XL] 50 mg PO BID 10/24/14 02/25/17 History Diltiazem HCl [Diltiazem 24Hr ER] 180 mg PO BID@0900,209901/02/15 02/25/17 History Methocarbamol [Robaxin] 500 mg PO BID@0900,209901/02/15 02/25/17 History Montelukast [Singulair] 10 mg PO DAILY@0900 01/02/15 02/25/17 History Melatonin 3 mg PO HS@209902/27/15 02/25/17 History Methyl Salicylate/Menthol 1 patch TP DAILY PRN 02/27/15 02/25/17 History [Salonpas Patch] Nitroglycerin Sl Tabs [Nitrostat] 0.4 mg SUBLINGUAL Q5M PRN 02/27/15 02/25/17 History Insuln Asp Prt/Insulin Aspart 17 unit SQ AC-SUPPER #1 vial 03/03/15 02/25/17 Rx [NovoLOG MIX 70-30 VIAL] Insuln Asp Prt/Insulin Aspart 34 unit SQ AC-BRKFST #1 vial 03/03/15 02/25/17 Rx [NovoLOG MIX 70-30 VIAL] Sennosides [Senokot] 8.6 mg PO BID@0900,2100 tab 03/03/15 02/25/17 Rx Ergocalciferol [Vitamin D2] 50,000 unit PO Q7D 02/25/17 02/25/17 History Furosemide [Lasix] 40 mg PO DAILY 02/25/17 02/25/17 History Gabapentin [Neurontin] 400 mg PO BID 02/25/17 02/25/17 History Hydrocodone/Acetaminophen [[place] 1 tab PO Q6H PRN 02/25/17 02/25/17 History 10-325] Simvastatin [Zocor] 20 mg PO DAILY 02/25/17 02/25/17 History Allergies Allergy/AdvReac Type Severity Reaction Status Date / Time gabapentin Allergy Severe Unknown Verified 02/25/17 10:50 aspirin Allergy Nausea & Verified 02/25/17 10:50 Vomiting, hives Physical Exam Vitals: Vital Signs Temp Pulse Resp BP Pulse Ox 02/25/17 12:21 61 20 133/62 95 02/25/17 11:10 65 18 118/68 99 02/25/17 11:05 66 20 114/63 98 02/25/17 10:59 70 20 132/65 99 02/25/17 10:06 97.0 F L 65 18 162/74 97 Intake and Output 02/24/17 02/25/17 02/25/17 22:59 06:59 14:59 Other: Weight 55.338 kg Patient Weight 02/26/17 06:59 Weight 55.338 kg PHYSICAL EXAMINATION: Patient is lying in the bed comfortably, appears to be in mild distress due to pain., awake alert and oriented.. HEENT: Normocephalic. Neck is supple. Pupils reactive. Nostrils clear. Oral cavity is moist. Ears reveal no drainage. Neck reveals no JVD, carotid bruits, or thyromegaly. CHEST EXAMINATION: Trachea is central. Symmetrical expansion. Lung valentino clear to auscultation and percussion. CARDIAC: Anterior chest wall tenderness with deep palpation. Normal S1, S2 with no gallops. No murmurs ABDOMEN: Soft. Bowel sounds normal. No organomegaly. No abdominal bruits. Extremities reveal no edema. No clubbing or cyanosis Neurologically awake, alert, oriented x3 with well-coordinated movements. Skin: no rash or skin lesions Musculoskeletal: no joint swelling or deformity. Results CBC & Chem 7: 02/25/17 10:25 02/25/17 10:25 Labs: Abnormal Lab Results - Last 24 Hours (Table) 02/25/17 02/25/17 Range/Units 10:25 10:25 Carbon Dioxide 21 L (22-30) mmol/L BUN 29 H (7-17) mg/dL Glucose 211 H (74-99) mg/dL Total Creatine Kinase 24 L (30-135) U/L Assessment and Plan Plan: #1. Atypical Chest pain. Most likely musculoskeletal. We will rule out ACS #2 history of coronary artery disease and stent placement. #3 history of pacemaker placement #4 hypertension #5 uncontrolled diabetes mellitus #6. Mild dehydration #7 chronic low back pain #8 hiatal hernia #7 DVT prophylaxis with heparin subcu. Plan: Patient is ALLERGIC to aspirin. Will be continued on Plavix, metoprolol, Cardizem, lisinopril, Imdur and statins. Continuous telemetry monitoring and serial EKG. Pain management and cardiology has been consulted. Further recommendations based on the clinical course.
== END 2017-02-26 15:10 | disposition home or self-care (01) ==
LOC: EC 10:04 → 3OBS 12:17
PROVIDERS: ADMIT Internal Medicine; ATTEND Internal Medicine
DX: R07.89 Other chest pain (principal); M25.512 Pain in left shoulder; I25.10 Atherosclerotic heart disease of native coronary artery without angina pectoris; I10 Essential (primary) hypertension; E78.5 Hyperlipidemia, unspecified; E11.9 Type 2 diabetes mellitus without complications; K44.9 Diaphragmatic hernia without obstruction or gangrene; G89.29 Other chronic pain; M54.5 Low back pain; E86.0 Dehydration; Z79.899 Other long term (current) drug therapy; Z79.02 Long term (current) use of antithrombotics/antiplatelets; Z79.4 Long term (current) use of insulin; Z88.6 Allergy status to analgesic agent; Z88.8 Allergy status to other drugs, medicaments and biological substances; Z95.5 Presence of coronary angioplasty implant and graft; Z95.0 Presence of cardiac pacemaker; Z87.891 Personal history of nicotine dependence; Z82.49 Family history of ischemic heart disease and other diseases of the circulatory system
CPT/HCPCS: 96372 ×2; 96374; 96375; 99285; 36415; 93005; 80061; 80053; 82550; 82553; 83735; 84484; 85025; 85610; 85730; 71020; 73030; G0378 ×2; J1644 ×2; J2405; J1170

== ENCOUNTER 2017-10-30 06:40 | Emergency (ER) | payer MEDICARE, BC ==
[2017-10-30 06:52] LABS: Glucose,Whole Blood 196 mg/dL (75-99)
[2017-10-30 07:13] VITALS: TEMP 97.8
--- NOTE | 2017-10-30 07:23 | ED ---
Chest Pain HPI - General Chief Complaint: Chest Pain Stated Complaint: chest pain Time Seen by Provider: 10/30/17 07:00 Source: patient, EMS, RN notes reviewed, old records reviewed Mode of arrival: EMS Limitations: no limitations, physical limitation - History of Present Illness Initial Comments: This is a 77-year-old female with a history of multiple medical problems and cleaning CHF vertigo anemia urinary tract infections who was brought in this morning for evaluation for left-sided shoulder and chest pain. She states is very sharp in nature gets worse with movements and positional changes no shortness of breath fevers chills nausea vomiting sweats or other symptoms associated with it. She states it is severe. No recent trauma. MD Complaint: chest pain, other - Related Data Home Medications Medication Instructions Recorded Confirmed Isosorbide Mononitrate [Imdur] 60 mg PO BID@0900,209912/20/13 02/25/17 Clopidogrel [Plavix] 75 mg PO DAILY@1700 10/24/14 02/25/17 Lisinopril [Prinivil] 20 mg PO DAILY@0900 10/24/14 02/25/17 Metoprolol Succinate [Toprol XL] 50 mg PO BID 10/24/14 02/25/17 Diltiazem HCl [Diltiazem 24Hr ER] 180 mg PO BID@0900,209901/02/15 02/25/17 Methocarbamol [Robaxin] 500 mg PO BID@0900,209901/02/15 02/25/17 Montelukast [Singulair] 10 mg PO DAILY@0900 01/02/15 02/25/17 Melatonin 3 mg PO HS@209902/27/15 02/25/17 Methyl Salicylate/Menthol 1 patch TP DAILY PRN 02/27/15 02/25/17 [Salonpas Patch] Nitroglycerin Sl Tabs [Nitrostat] 0.4 mg SUBLINGUAL Q5M PRN 02/27/15 02/25/17 Ergocalciferol [Vitamin D2 50,000 unit PO Q7D 02/25/17 02/25/17 (DRISDOL)] Furosemide [Lasix] 40 mg PO DAILY 02/25/17 02/25/17 Gabapentin [Neurontin] 400 mg PO BID 02/25/17 02/25/17 Hydrocodone/Acetaminophen [[place] 1 tab PO Q6H PRN 02/25/17 02/25/17 10-325] Simvastatin [Zocor] 20 mg PO DAILY 02/25/17 02/25/17 Previous Rx's Medication Instructions Recorded Insuln Asp Prt/Insulin Aspart 17 unit SQ AC-SUPPER #1 vial 03/03/15 [NovoLOG MIX 70-30 VIAL] Insuln Asp Prt/Insulin Aspart 34 unit SQ AC-BRKFST #1 vial 03/03/15 [NovoLOG MIX 70-30 VIAL] Sennosides [Senokot] 8.6 mg PO BID@0900,2100 tab 03/03/15 Allergies Allergy/AdvReac Type Severity Reaction Status Date / Time gabapentin Allergy Severe Unknown Verified 10/30/17 07:01 aspirin Allergy Nausea & Verified 10/30/17 07:01 Vomiting, hives Review of Systems ROS Statement: Those systems with pertinent positive or pertinent negative responses have been documented in the HPI. ROS Other: All systems not noted in ROS Statement are negative. EKG Findings - EKG Results: EKG: interpreted by DESTINY (Pacemaker rhythm rate of 80 CA interval 286 QRS duration 122 QT since QTC of 434/500 this is compared to a tracing from 02/26/17) Past Medical History Past Medical History: Coronary Artery Disease (CAD), Diabetes Mellitus, Hyperlipidemia, Hypertension Additional Past Medical History / Comment(s): arrythmia, hiatal hernia, hx ulcer years ago, frequent UTI's, chronic lower back pain, torn rotator cuff (rt) , skin CA removed on nose History of Any Multi-Drug Resistant Organisms: None Reported Past Surgical History: Appendectomy, Heart Catheterization With Stent, Hernia Repair, Hysterectomy, Pacemaker Additional Past Surgical History / Comment(s): biopsy of skin lesion on nose Past Anesthesia/Blood Transfusion Reactions: No Reported Reaction Date of Last Stent Placement:: 2006 Type of Cardiac Device: Permanent Pacemaker Device Placement Date:: 01/2012 Past Psychological History: No Psychological Hx Reported Smoking Status: Former smoker Past Alcohol Use History: None Reported Past Drug Use History: None Reported - Past Family History Mother Family Medical History: Cancer, Hypertension Additional Family Medical History / Comment(s): Mother had leukemia. She at the age of 78yrs. She had 21 children. Father Family Medical History: Myocardial Infarction ([place]) Additional Family Medical History / Comment(s): pt stated had heart issues but doesn't recall what General Exam - General Exam Comments Initial Comments: Is a well-developed obese female who is awake and alert very anxious. Limitations: no limitations, physical limitation General appearance: alert, anxious Head exam: Present: atraumatic, normocephalic, normal inspection Eye exam: Present: normal appearance, PERRL, EOMI. Absent: scleral icterus, conjunctival injection, periorbital swelling ENT exam: Present: mucous membranes dry Neck exam: Present: normal inspection. Absent: tenderness, meningismus, lymphadenopathy Respiratory exam: Present: normal lung sounds bilaterally, chest wall tenderness (Tennis palpation over the left upper chest wall for the left shoulder above the site of the pacemaker battery. No step-off or crepitation no discoloration.). Absent: respiratory distress, wheezes, rales, rhonchi, stridor Cardiovascular Exam: Present: regular rate, normal rhythm, normal heart sounds. Absent: systolic murmur, diastolic murmur, rubs, gallop, clicks GI/Abdominal exam: Present: soft, normal bowel sounds. Absent: distended, tenderness, guarding, rebound, rigid Extremities exam: Present: normal inspection, full ROM, tenderness (Tenderness palpation of the anterior rotator cuff region. No subluxation noted. Patient does demonstrate reasonably good range of motion.), normal capillary refill. Absent: pedal edema, joint swelling, calf tenderness Back exam: Present: normal inspection Neurological exam: Present: alert, oriented X3, CN II-XII intact Psychiatric exam: Present: anxious Skin exam: Present: warm, dry, intact, normal color. Absent: rash Course Vital Signs 10/30/17 10/30/17 10/30/17 06:56 07:03 07:11 Temperature 97.8 F Pulse Rate 82 76 Pulse Rate [ 68 Right Cnc Mechanic] Respiratory 18 16 Rate Blood Pressure 140/55 140/55 O2 Sat by Pulse 97 97 Oximetry 10/30/17 08:09 Temperature Pulse Rate 60 Pulse Rate [ Right Cnc Mechanic] Respiratory 18 Rate Blood Pressure 137/52 O2 Sat by Pulse 94 L Oximetry Chest Pain MDM - MDM I did review the imaging and report no acute findings patient is feeling much improved after the medication was given the patient's presentation is consistent with chest wall and musculoskeletal pain. Disposition Clinical Impression: Chest wall syndrome, Myofascial muscle pain Disposition: HOME SELF-CARE Condition: Good Instructions: Musculoskeletal Pain (ED) Additional Instructions: Tylenol for pain 650 mg every 6 hours as needed Is patient prescribed a controlled substance at d/c from ED?: No Referrals: Javier Enriquez MD [Primary Care Provider] - 1-2 days
[2017-10-30 07:29] LABS: Basophils % (A) 0 %; Eosinophils # (A) 0.1 k/uL (0-0.7); Eosinophils % (A) 2 %; HCT 32.6 % (34.0-46.0); HGB 10.6 gm/dL (11.4-16.0); Hypochromasia Slight; Lymphocytes # (A) 1.1 k/uL (1.0-4.8); Lymphocytes % (A) 16 %; MCH 28.2 pg (25.0-35.0); MCHC 32.5 g/dL (31.0-37.0); MCV 86.7 fL (80.0-100.0); Mean Platelet Volume 7.4; Monocytes # (A) 0.4 k/uL (0-1.0); Monocytes % (A) 6 %; Neutrophils # (A) 5.3 k/uL (1.3-7.7); Neutrophils % (A) 75 %; Platelet Count 255 k/uL (150-450); RBC 3.76 m/uL (3.80-5.40); WBC 7.1 k/uL (3.8-10.6)
[2017-10-30] MEDS ORDERED: ACETAMINOPHEN IV (For NPO) 1,000 MG in SALINE 1 100ML.BAG IVPB STA (07:29)
[2017-10-30 07:38] LABS: ALT 24 U/L (9-52); AST 22 U/L (14-36); Albumin 3.8 g/dL (3.5-5.0); Alkaline Phosphatase 54 U/L (38-126); Anion Gap 11 mmol/L; Blood Urea Nitrogen 20 mg/dL (7-17); Calcium 9.3 mg/dL (8.4-10.2); Carbon Dioxide 27 mmol/L (22-30); Chloride 103 mmol/L (98-107); Glucose 177 mg/dL (74-99); Lipase 22 U/L (23-300); Magnesium 1.7 mg/dL (1.6-2.3); Sodium 141 mmol/L (137-145); Total Bilirubin 0.5 mg/dL (0.2-1.3); Total Protein 6.5 g/dL (6.3-8.2)
[2017-10-30 07:43] LABS: Potassium 4.5 mmol/L (3.5-5.1)
[2017-10-30 07:51] LABS: Creatine Kinase 43 U/L (30-135)
--- NOTE | 2017-10-30 07:57 | XR ---
EXAMINATION TYPE: XR chest 2V DATE OF EXAM: 10/30/2017 COMPARISON: Prior chest dated 02/24/2017 HISTORY: Chest pain TECHNIQUE: Frontal and lateral views of the chest are obtained. FINDINGS: Patient is rotated. There are overlying cardiac leads. Heart is enlarged and stable. Pacem audra is stable. No evident pneumothorax or pleural effusion. Pulmonary vascularity and didi not signi ficantly changed. No evident pneumonia. IMPRESSION: Cardiomegaly
[2017-10-30 08:04] LABS: Creatine Kinase MB 0.7 ng/mL (0.0-2.4); Troponin I <0.012 ng/mL (0.000-0.034)
[2017-10-30 08:09] VITALS: PULSE 60
[2017-10-30 08:13] LABS: Partial Thromboplastin Time 18.4 sec (22.0-30.0)
[2017-10-30 09:04] VITALS: BP 122/59; RESP 16
== END 2017-10-30 09:26 | disposition home or self-care (01) ==
LOC: EC 06:40
DX: M79.1 Myalgia (principal); R07.1 Chest pain on breathing; E66.9 Obesity, unspecified; Z68.27 Body mass index [BMI] 27.0-27.9, adult; F41.9 Anxiety disorder, unspecified; E78.5 Hyperlipidemia, unspecified; I10 Essential (primary) hypertension; I25.10 Atherosclerotic heart disease of native coronary artery without angina pectoris; Z82.49 Family history of ischemic heart disease and other diseases of the circulatory system; Z87.891 Personal history of nicotine dependence; Z88.6 Allergy status to analgesic agent; Z88.8 Allergy status to other drugs, medicaments and biological substances; Z79.02 Long term (current) use of antithrombotics/antiplatelets; Z79.899 Other long term (current) drug therapy; Z95.0 Presence of cardiac pacemaker; Z95.5 Presence of coronary angioplasty implant and graft; Z85.828 Personal history of other malignant neoplasm of skin; Z98.890 Other specified postprocedural states
CPT/HCPCS: 36415; 93005; 80053; 82550; 82553; 83690; 83735; 84484; 85025; 85610; 85730; 71046; 99285; 96374; J0131

== ENCOUNTER 2018-09-04 12:10 | Observation (INO) | payer MEDICARE, BC ==
[2018-09-04] MEDS ORDERED: fentaNYL (PF) 50 MCG/ML 2 ML AMP IVP ONE (13:40)
[2018-09-04] MEDS ORDERED: MIDAZOLAM 2 MG/2 ML VIAL IVP ONE (13:40)
[2018-09-04] MEDS ORDERED: CLOPIDOGREL 75 MG TAB PO ONE (13:52)
[2018-09-04] MEDS ORDERED: IV FLUID CONTINUATION 1,000 ML IV ONE (13:52)
[2018-09-04] MEDS ORDERED: NITROGLYCERIN 1000MCG/10ML SYRINGE INTRACORON ONE (14:03)
[2018-09-04] MEDS ORDERED: HYDROmorphone 2 MG/ML 1 ML SYRINGE IVP ONE (14:04)
[2018-09-04] MEDS ORDERED: BIVALIRUDIN 250 MG in SODIUM CHLORIDE 0.9% 50 ML IV ONE (14:04)
[2018-09-04] MEDS ORDERED: DIAZEPAM 5 MG TAB PO PRN (14:12)
[2018-09-04] MEDS ORDERED: GABAPENTIN 400 MG CAP PO PRN (14:12)
[2018-09-04] MEDS ORDERED: Acetaminophen-Codeine 300-30mg TAB PO PRN (14:12)
[2018-09-04] MEDS ORDERED: ATROPINE SULFATE 0.1 MG/ML 10ML SYRINGE IV PRN (14:15)
[2018-09-04] MEDS ORDERED: RX INFO: IV CONTRAST WAS GIVEN 1 EACH MISC MISCELLANE PRN (14:15)
[2018-09-04] MEDS ORDERED: MAG HYDROX/AL HYDROX/SIMETH 30 ML CUP PO PRN (14:15)
[2018-09-04] MEDS ORDERED: SODIUM CHLORIDE 0.9% 1,000 ML IV SCH (14:15)
[2018-09-04] MEDS ORDERED: NITROGLYCERIN SL TABS 0.4 MG TAB SUBLINGUAL PRN (14:15)
--- NOTE | 2018-09-04 14:32 | PTCA ---
PERCUTANEOUSTRANS CORORONARY ANGIOGRAPHY PERCUTANEOUS CORONARY INTERVENTION: DATE OF SERVICE: September 04, 2018 PERFORMING PHYSICIAN: Pawan Robins MD, dental prosthetist. PROCEDURE PERFORMED: 1. Successful stenting of the distal left circumflex coronary artery using 2.75 x 15 mm Xience drug-eluting stent with excellent angiographic results. 2. Successful stenting of the proximal left circumflex using 4.0 x 12 mm Xience drug- eluting stent with excellent angiographic results. INDICATION: This is a 78-year-old female patient who sees Dr. Pelletier in the office as an outpatient with known history of coronary artery disease who was admitted to [facility] with chest discomfort concerning for angina. She has been utilizing significant amount of sublingual nitroglycerin. Dr. Pelletier performed a heart catheterization on her and that revealed critical disease involving the left circumflex. Because of that, a was advised. APPROACH: Right common femoral artery. COMPLICATION: None. LEVEL OF SEDATION: Moderate with sedation length of 24 minutes. PROCEDURE DESCRIPTION: Please refer to diagnostic heart catheterization that was performed by Dr. Pelletier. Anticoagulation was initiated using Angiomax. The left main was engaged using XP3 guide. A run-through wire was used to wire the left circumflex. Subsequently predilatation using 2.5 x 12 mm balloon before I deployed distally 2.75 x 15 mm Xience drug-eluting stent, which was positioned under fluoroscopy guidance and deployed under 14 atmospheres for 20 seconds and proximally a 4.0 x 12 mm Xience drug-eluting stent, which was also positioned under fluoroscopy guidance and deployed under 14 atmospheres for 20 seconds. The proximal stent was post dilated using 4.0 mm NC balloon. The final angiogram showed excellent angiographic results and the procedure was completed without any complication. POSTPROCEDURE MANAGEMENT: 1. Dual antiplatelet therapy. 2. Risk factors modifications. 3. Follow up with the patient. MMODL / IJN: [id number] /
[2018-09-04] MEDS ORDERED: IOPAMIDOL-370 125ML BTL INJ ONE (14:36)
[2018-09-04] MEDS ORDERED: hydrALAZINE HCL 20 MG/ML 1 ML VIAL ONE (14:58)
[2018-09-04] MEDS ORDERED: hydrALAZINE HCL 20 MG/ML 1 ML VIAL IVP PRN (15:02)
[2018-09-04 15:54] LABS: Glucose,Whole Blood 164 mg/dL (75-99)
[2018-09-04] MEDS: hydrALAZINE HCL 25 MG TAB PO SCH ×2 (16:21→20:51)
[2018-09-04 17:04] LABS: Glucose,Whole Blood 166 mg/dL (75-99)
[2018-09-04 20:35] LABS: Glucose,Whole Blood 188 mg/dL (75-99)
[2018-09-04] MEDS: INSULIN ASPART (NovoLOG) 100 UNIT/ML VIAL SQ SCH (20:52)
[2018-09-04] MEDS ORDERED: LATANOPROST 0.005% OPHTH DROPS 2.5 ML BTL BOTH EYES SCH (21:00)
[2018-09-04] MEDS ORDERED: MONTELUKAST 10 MG TAB PO SCH (21:00)
[2018-09-04] MEDS: traMADol 50 MG TAB PO PRN (23:40)
[2018-09-05] MEDS ORDERED: LORazepam 2 MG/ML INJ IV PRN (01:41)
[2018-09-05 04:27] VITALS: PULSE 83
[2018-09-05] MEDS: traMADol 50 MG TAB PO PRN (05:19)
[2018-09-05 06:00] LABS: Glucose,Whole Blood 208 mg/dL (75-99)
[2018-09-05] MEDS: INSULIN ASPART (NovoLOG) 100 UNIT/ML VIAL SQ SCH (06:41)
[2018-09-05 08:57] VITALS: BP 158/81; RESP 18; TEMP 99.6
[2018-09-05] MEDS ORDERED: LISINOPRIL 20 MG TAB PO SCH (09:00)
[2018-09-05] MEDS ORDERED: DILTIAZEM CD 180 MG CAP.ER.24H PO SCH (09:00)
[2018-09-05] MEDS: ASPIRIN 81 MG PO SCH ×2 (09:00→09:04)
[2018-09-05] MEDS: hydrALAZINE HCL 25 MG TAB PO SCH (09:00)
[2018-09-05] MEDS ORDERED: METOPROLOL SUCCINATE (ER) 50 MG TAB.ER.24H PO SCH (09:00)
[2018-09-05] MEDS ORDERED: CLOPIDOGREL 75 MG TAB PO SCH (09:00)
[2018-09-05] MEDS ORDERED: ATORVASTATIN 10 MG TAB PO SCH (09:00)
[2018-09-05 10:07] LABS: HCT 42.3 % (34.0-46.0); MCH 29.2 pg (25.0-35.0); MCHC 33.2 g/dL (31.0-37.0); MCV 87.8 fL (80.0-100.0); Mean Platelet Volume 6.5; Platelet Count 220 k/uL (150-450); RBC 4.81 m/uL (3.80-5.40); RDW 14.1 % (11.5-15.5); WBC 6.1 k/uL (3.8-10.6)
[2018-09-05 10:15] LABS: Anion Gap 6 mmol/L; Blood Urea Nitrogen 12 mg/dL (7-17); Calcium 9.3 mg/dL (8.4-10.2); Carbon Dioxide 27 mmol/L (22-30); Chloride 104 mmol/L (98-107); Glucose 154 mg/dL (74-99); Potassium 4.1 mmol/L (3.5-5.1); Sodium 137 mmol/L (137-145)
--- NOTE | 2018-09-05 10:21 | P.PN ---
Subjective Progress Note Date: 09/05/18 Discharge note This is a pleasant 78-year-old female who follows regularly with Dr. Camacho in the office. She has a known history of coronary artery disease, hypertension, hyperlipidemia diabetes, anemia, she presented to [facility] with symptoms of unstable angina, underwent a cardiac catheterization there which revealed critical disease involving the circumflex, hence the patient was transferred here to [facility] with the patient underwent successful stenting of the distal circumflex and proximal circumflex by Dr. Del Angel. Patient did have some confusion issues through the night last night for which a sitter was at bedside, this morning she is much more alert. Any chest discomfort or difficulty in breathing. Blood pressure 130/60, heart rate in the 80s, 92% on 2 L of oxygen. White blood cell count 6.1, hemoglobin 14.0, platelet count 220. Sodium 137, potassium 4.1, BUN 12 and creatinine 0.5. EKG shows normal sinus rhythm with no changes from post-PCI. Objective - Vital Signs Vital signs: Vital Signs Temp 99.6 F 09/05/18 08:51 Pulse 83 09/05/18 08:51 Resp 18 09/05/18 08:51 BP 158/81 09/05/18 08:51 Pulse Ox 95 09/05/18 08:51 Intake & Output 09/04/18 09/05/18 09/05/18 18:59 06:59 18:59 Intake Total 185 240 Output Total 900 961 Balance -715 -721 Weight 101 kg 106.1 kg Intake: IV 185 Oral 240 Output: Urine 900 925 Straight 800 Post Void Residual 36 Other: Voiding Method Bedpan Toilet Bedpan # Voids 1 - Exam PHYSICAL EXAMINATION: GENERAL: 78-year-old female in no acute distress at the time of my examination HEENT: Head is atraumatic, normocephalic. Pupils equal, round. Sclera anicteric. Conjunctiva are clear. Mucous membranes of the mouth are moist. Neck is supple. There is no elevated jugular venous pressure. No carotid bruit is heard. HEART EXAMINATION: Heart S1 S2 1 systolic murmur is heard. CHEST EXAMINATION: Lungs are clear to auscultation and precussion. No chest wall tenderness is noted on palpation or with deep breathing. ABDOMEN: Soft, nontender. Bowel sounds are heard. No organomegaly noted. EXTREMITIES: 2+ peripheral pulses with no evidence of peripheral edema and no calf tenderness noted. Right groin soft, no evidence of any hematoma. NEUROLOGIC patient is awake, alert and oriented 2 . . - Labs CBC & Chem 7: 09/05/18 09:51 09/05/18 09:51 Labs: Abnormal Lab Results - Last 24 Hours (Table) 09/04/18 09/04/18 09/04/18 Range/Units 15:43 16:51 20:30 Glucose (74-99) mg/dL POC Glucose (mg/dL) 164 H 166 H 188 H (75-99) mg/dL 09/05/18 09/05/18 Range/Units 05:57 09:51 Glucose 154 H (74-99) mg/dL POC Glucose (mg/dL) 208 H (75-99) mg/dL Assessment and Plan Plan: Assessment and plan #1 unstable angina, status post successful stenting of the distal and proximal circumflex artery. #2 diabetes #3 hypertension #4 hyperlipidemia #5 intermittent confusion #6 prior pacemaker implantation Plan From cardiology's perspective, patient may be able to be discharged home today. We'll make her a follow-up appointment with Dr. Pelletier in the office post discharge. Patient will be discharged home on aspirin 81 mg daily, Lipitor 80 mg daily, Plavix 75 mg daily, Cardizem CD 180 mg daily, metoprolol 50 mg daily, sublingual nitroglycerin as needed for chest pain. DNP note has been reviewed, I agree with a documented findings and plan of care. Patient was seen and examined.
[2018-09-05 12:20] LABS: Glucose,Whole Blood 199 mg/dL (75-99)
[2018-09-05 12:38] VITALS: BMI 40.1
[2018-09-05] MEDS ORDERED: ATORVASTATIN 80 MG TAB PO SCH (21:00)
== END 2018-09-05 13:44 | disposition home or self-care (01) ==
LOC: 3SCARD 14:11
PROVIDERS: ADMIT Internal Medicine Interventional Cardiology; ATTEND Internal Medicine Interventional Cardiology
DX: I25.110 Atherosclerotic heart disease of native coronary artery with unstable angina pectoris (principal); E11.22 Type 2 diabetes mellitus with diabetic chronic kidney disease; I13.0 Hypertensive heart and chronic kidney disease with heart failure and stage 1 through stage 4 chronic kidney disease, or unspecified chronic kidney disease; N18.2 Chronic kidney disease, stage 2 (mild); I50.9 Heart failure, unspecified; E78.5 Hyperlipidemia, unspecified; D64.9 Anemia, unspecified; R41.0 Disorientation, unspecified; I48.0 Paroxysmal atrial fibrillation; M19.012 Primary osteoarthritis, left shoulder; M19.011 Primary osteoarthritis, right shoulder; M46.92 Unspecified inflammatory spondylopathy, cervical region; G89.4 Chronic pain syndrome; E11.40 Type 2 diabetes mellitus with diabetic neuropathy, unspecified; G25.81 Restless legs syndrome; Z87.440 Personal history of urinary (tract) infections; Z87.19 Personal history of other diseases of the digestive system; Z95.5 Presence of coronary angioplasty implant and graft; Z87.891 Personal history of nicotine dependence; Z86.19 Personal history of other infectious and parasitic diseases; Z79.899 Other long term (current) drug therapy; Z95.0 Presence of cardiac pacemaker; Z79.02 Long term (current) use of antithrombotics/antiplatelets; Z79.4 Long term (current) use of insulin; Z88.6 Allergy status to analgesic agent
CPT/HCPCS: 92928; 80048; 85027; G0378 ×2; G0379; C9600; C1887 ×2; C1769 ×3; C1725 ×2; C1894; C1874; J2250; J2060; J1170; J0360; J3010; J0583; Q9967